=== PATIENT | male | born 1995 | race African-American/Black ===

== ENCOUNTER → 2018-08-06 07:12 | Emergency (ER) | payer SELFPAY | END | disposition left against medical advice (07) | LOC: ED 07:12 | DX: R10.9 Unspecified abdominal pain (principal); Z53.21 Procedure and treatment not carried out due to patient leaving prior to being seen by health care provider ==

== ENCOUNTER 2018-08-07 00:23 | Emergency (ER) | payer SELFPAY ==
[2018-08-07 02:09] VITALS: BP 114/74
[2018-08-07 03:37] LABS: Basophils # (Auto) 0.1 K/mm3 (0.0-0.1); Basophils % (Auto) 0.6 % (0.0-1.8); Eosinophils # (Auto) 0.1 K/mm3 (0.0-0.4); Eosinophils % (Auto) 0.6 % (0.0-4.3); Hematocrit 47.6 % (35.5-45.6); Hemoglobin 16.4 gm/dl (11.8-15.2); Lymphocytes # (Auto) 2.3 K/mm3 (1.2-5.4); Lymphocytes % (Auto) 21.4 % (13.4-35.0); Mean Corpuscular HGB Conc 35 % (32-34); Mean Corpuscular Hemoglobin 31 pg (28-32); Mean Corpuscular Volume 90 fl (84-94); Monocytes # (Auto) 0.8 K/mm3 (0.0-0.8); Platelet Count 262 K/mm3 (140-440); Red Blood Count 5.31 M/mm3 (3.65-5.03)
[2018-08-07 03:44] LABS: INR 0.9 (0.87-1.13); Partial Thromboplastin Time 27.9 Sec. (24.2-36.6)
[2018-08-07 03:50] LABS: Alanine Aminotransferase 34 units/L (7-56); Albumin 4.3 g/dL (3.9-5); BUN/Creatinine Ratio 12; Blood Urea Nitrogen 12 mg/dL (9-20); Calcium 9.1 mg/dL (8.4-10.2); Hemolysis Index 7
[2018-08-07] MEDS ORDERED: MORPHINE IV ONE (04:56)
[2018-08-07] MEDS ORDERED: ZOFRAN IV ONE (04:56)
--- NOTE | 2018-08-07 05:00 | Emergency Department Report ---
ED Abdominal Pain HPI - General Chief Complaint: Abdominal Pain Stated Complaint: ABDOMINAL PAIN Time Seen by Provider: 08/07/18 03:09 Source: patient Mode of arrival: Ambulatory Limitations: No Limitations - History of Present Illness Initial Comments: Patient is a 22-year-old male history of the hernia who presents for abdominal pain redness swelling to 3 days states he was running through his belly pain inflammation since aching throughout patient is not taking [id number] NSAIDs or anything for pain is 4/10 at this time MD Complaint: abdominal pain Onset/Timin -: Gradual, month(s) Location: diffuse Migration to: no migration Severity: moderate Severity scale (0 -10): 3 Quality: cramping Consistency: constant Improves With: nothing Worsens With: nothing Associated Symptoms: fever. denies: anorexia - Related Data Previous Rx's Medication Instructions Recorded Last Taken Type Clindamycin [Clindamycin CAP] 300 mg PO Q8H #30 cap 08/07/18 Unknown Rx traMADol [Ultram] 50 mg PO Q6HR PRN #12 tablet 08/07/18 Unknown Rx Allergies Allergy/AdvReac Type Severity Reaction Status Date / Time No Known Allergies Allergy Unverified 08/07/18 02:09 ED Review of Systems ROS: Stated complaint: ABDOMINAL PAIN Other details as noted in HPI Constitutional: denies: chills, fever Eyes: denies: eye pain, eye discharge, vision change ENT: denies: ear pain, throat pain Respiratory: denies: cough, shortness of breath, wheezing Cardiovascular: denies: chest pain, palpitations Endocrine: no symptoms reported Gastrointestinal: abdominal pain, nausea, constipation. denies: diarrhea Genitourinary: denies: urgency, dysuria Musculoskeletal: denies: back pain, joint swelling, arthralgia Skin: as per HPI, pruritus, other (periumbilical erythema pain ). denies: rash , lesions Neurological: denies: headache, weakness, paresthesias Psychiatric: denies: anxiety, depression Hematological/Lymphatic: denies: easy bleeding, easy bruising ED Past Medical Hx - Past Medical History Previous Medical History?: No - Surgical History Past Surgical History?: No - Social History Smoking Status: Former Smoker Substance Use Type: None - Medications Home Medications: Home Medications Medication Instructions Recorded Confirmed Last Taken Type Clindamycin [Clindamycin CAP] 300 mg PO Q8H #30 cap 08/07/18 Unknown Rx traMADol [Ultram] 50 mg PO Q6HR PRN #12 tablet 08/07/18 Unknown Rx ED Physical Exam - General Limitations: No Limitations General appearance: alert, in no apparent distress - Head Head exam: Present: atraumatic, normocephalic - Eye Eye exam: Present: normal appearance - ENT ENT exam: Present: mucous membranes moist - Neck Neck exam: Present: normal inspection - Respiratory Respiratory exam: Present: normal lung sounds bilaterally. Absent: respiratory distress - Cardiovascular Cardiovascular Exam: Present: regular rate, normal rhythm. Absent: systolic murmur, diastolic murmur, rubs, gallop - GI/Abdominal GI/Abdominal exam: Present: soft, tenderness, guarding (mild periumibilical ), rigid, normal bowel sounds. Absent: rebound, mass, bruit, hernia - Expanded GI/Abdominal Exam Expanded GI/Abdominal exam: Absent: psoas sign, obturator sign, heel tap sign, Ponce's sign, Rovsing's sign, tenderness at Mcburney's Point, ascites - Rectal Rectal exam: Absent: black stool, bloody stool, fecal impaction, hemorrhoids, mass, tenderness - Extremities Exam Extremities exam: Present: normal inspection, full ROM - Back Exam Back exam: Present: normal inspection - Neurological Exam Neurological exam: Present: alert, oriented X3, CN II-XII intact, normal gait, reflexes normal - Expanded Neurological Exam Expanded Patient oriented to: Present: person, place, time Speech: Present: fluid speech Cranial nerves: EOM's Intact: Normal, Gag Reflex: Normal, Tongue Deviation: Normal, Nystagmus: Normal, Facial Sensation: Normal, Facial Palsy with Forehead Movement: Normal, Facial Palsy without Forehead Movement: Normal Cerebellar function: Finger to Nose: Normal, Heel to Miller: Normal, Romberg: Normal Upper motor neuron: Gavin Neglect: Normal, Pronator Drift: Normal, Babinski Sign : Normal Sensory exam: Upper Extremity Light Touch: Normal, Upper Extremity Pin Prick: Normal, Upper Extremity Temperature: Normal, UE 2 Point Discrimination: Normal, Lower Extremity Light Touch: Normal, Lower Extremity Pin Prick: Normal, Lower Extremity Temperature: Normal, LE 2 Point Discrimination: Normal Motor strength exam: RUE: 5, LUE: 5, RLE: 5, LLE: 5 DTR: bicep (R): 2+, bicep (L): 2+, tricep (R): 2+, tricep (L): 2+, knee (R): 2+ , knee (L): 2+, ankle (R): 2+, ankle (L): 2+ Best Eye Response ([place]): (4) open spontaneously Best Motor Response ([place]): (6) obeys commands Best Verbal Response ([place]): (5) oriented [place] Total: 15 - Psychiatric Psychiatric exam: Present: normal affect, normal mood - Skin Skin exam: Present: warm, dry, intact, normal color. Absent: rash ED Course Vital Signs 08/07/18 08/07/18 08/07/18 01:54 05:07 05:37 Temperature 99.8 F H Pulse Rate 76 Respiratory 18 18 18 Rate Blood Pressure 114/74 O2 Sat by Pulse 98 Oximetry ED Medical Decision Making - Lab Data Result diagrams: 08/07/18 03:25 08/07/18 03:25 - Radiology Data Radiology results: report reviewed, image reviewed There is inflammed umbilitca fat in anterior abd wall there is no acute intraabdominal abnormality jessika . - Medical Decision Making His abdominal wall cellulitis patient treated with clindamycin 900 mg IV piggyback there is no sepsis no fever no nausea vomiting plan DC to home clindamycin by mouth following general surgery in 2 days patient given strict instructions to return to ED should symptoms worsen patient verbalizes agreement and understanding the discharge plan patient DC'd home in stable condition at this time patient is currently on O 3 tolerating by mouth with no acute distress. Critical care attestation.: If time is entered above; I have spent that time in minutes in the direct care of this critically ill patient, excluding procedure time. ED Disposition Clinical Impression: Abdominal wall cellulitis, Abscess Disposition: DC-01 TO HOME OR SELFCARE Is pt being admited?: No Does the pt Need Aspirin: No Condition: Good Instructions: Cellulitis (ED) Prescriptions: Clindamycin [Clindamycin CAP] 300 mg PO Q8H #30 cap traMADol [Ultram] 50 mg PO Q6HR PRN #12 tablet PRN Reason: Pain Referrals: AUDRA MIRANDA DO [Staff Physician] - 3-5 Days Forms: Work/School Release Form(ED) Time of Disposition: 07:07
--- NOTE | 2018-08-07 05:12 | Cat Scan Report ---
FINAL REPORT PROCEDURE: CT ABDOMEN PELVIS W CON TECHNIQUE: Computerized axial tomography of the abdomen and pelvis was performed after the IV injection of iodinated nonionic contrast. HISTORY: abdominal pain COMPARISON: No prior studies are available for comparison. FINDINGS: Visualized lower thorax: No significant abnormality. Liver: Normal size and attenuation. Spleen: Normal size and attenuation. Gallbladder and biliary system: Normal. Pancreas: Normal. Adrenals: Normal. Kidneys: Normal. GI tract: Normal. Lymph nodes and mesentery: Normal. Vasculature: Normal. Bladder: Normal. Reproductive organs: Normal. Peritoneum: No free fluid. Musculoskeletal structures: No significant abnormality. Other: There is inflammation of umbilical fat suggesting focal cellulitis. There is no abscess.. IMPRESSION: The there is the inflamed umbilical fat in the anterior abdominal wall suggesting cellulitis. There is no discrete abscess. There is no acute intra-abdominal abnormality.
[2018-08-07] MEDS ORDERED: NACL 0.9% 1000 ML 1,000 ML IV ONE (05:23)
[2018-08-07] MEDS ORDERED: CLEOCIN 900 MG/50 mL 900 MG/50 ML BAG IV ONE (05:23)
== END 2018-08-07 07:32 | disposition home or self-care (01) ==
LOC: ED 00:23
DX: L03.311 Cellulitis of abdominal wall (principal); L02.211 Cutaneous abscess of abdominal wall; Z87.891 Personal history of nicotine dependence
CPT/HCPCS: 36415; 74177; 80053; 82140; 85025; 85610; 85730; 87040; 96365; 96375; 99284; J2270; J2405; J7030; Q9967